=== PATIENT | female | born 1965 | race Caucasian/White ===

== ENCOUNTER 2016-07-03 15:52 | Emergency (ER) | payer MEDICAID, OTHER ==
[~2016-07-03] VITALS: Ht 160 cm; Wt 88.5 kg
[~2016-07-03 15:52] MED LIST: NIAC500T51 PO; PERCOCET OR; ZOFR4TAB3 PO; ZYRT10TA14 PO; flovent INH; vento INH; vitamin D PO
[2016-07-03 15:53] VITALS: BP 128/86
[2016-07-03] MEDS ORDERED: VITA50003 (16:09)
[2016-07-03] MEDS ORDERED: GABA600T (16:09)
[2016-07-03] MEDS ORDERED: ARNU1INH (16:09)
[2016-07-03] MEDS ORDERED: ESTR25TA (16:09)
[2016-07-03] MEDS ORDERED: CELE1CAP9 (16:09)
[2016-07-03] MEDS ORDERED: AMIT10TA (16:09)
[2016-07-03] MEDS ORDERED: CYCL10TA (16:09)
[2016-07-03] MEDS ORDERED: OXYCO5TA PO (16:52)
== END 2016-07-03 17:00 | disposition home or self-care (01) ==
LOC: M ED 16:38
DX: M54.42 Lumbago with sciatica, left side (principal); J45.909 Unspecified asthma, uncomplicated; F17.200 Nicotine dependence, unspecified, uncomplicated; Z88.5 Allergy status to narcotic agent; Z79.899 Other long term (current) drug therapy; Z79.51 Long term (current) use of inhaled steroids

== ENCOUNTER → 2016-08-02 | Outpatient (CLI) | payer OTHER ==
[~2016-08-02] MED LIST changes: +ALBU17IN INH; +AMIT10TA; +ARNU1INH INH; +CELE1CAP9 PO; +CETI10TA PO; +CYCL10TA; +DRIS50002 PO; +ESTR25TA; +ESTR25TA PO; +FLUT22IN INH; +GABA600T PO; +OXYC-517 PO; +OXYCO5TA PO; +VITA50003
== END ==
LOC: M LAB 08:56
PROVIDERS: ATTEND Orthopaedic Surgery
DX: Z01.812 Encounter for preprocedural laboratory examination (principal)

== ENCOUNTER 2016-08-09 05:47 | Inpatient (IN) | payer OTHER ==
--- NOTE | 2016-08-06 13:33 | HPE ---
DATE OF ADMISSION: 08/09/2016 CHIEF COMPLAINT: Back pain, pain down her left leg. HISTORY: This is a pleasant 51-year-old female patient with progressively worsening back pain and pain down her left leg. She has failed to improve with conservative management, to include epidural steroid injections, physical therapy (PT), rest and activity modifications. She continues to have symptoms with normal day to day activities. She had a MRI of her lumbar spine notable for stenosis primarily at 3-4 and 4-5 with degenerative changes above and below those levels. She continues to have symptoms with normal activities. She has elected for surgery for her continued symptoms. She has consented for a left unilateral laminectomy and posterior fusion in situ at L3-L4-L5 with the use of a local bone graft and allograft in the form of ViviGen. ALLERGIES: No known drug allergies. CURRENT MEDICATIONS: - Celebrex 200 mg one tablet once per day. She will discontinue that on Saturday. - Cetirizine 10 mg one tablet once per day - Estradiol 0.5 mg one tablet once per day - Flexeril 10 mg one tablet up to three times a day - gabapentin 600 mg one tablet twice a day - Tylenol as needed for pain - Percocet as needed for pain MEDICAL HISTORY: Includes lumbar spinal stenosis, lumbar spondylolisthesis, lumbar degenerative disc disease, back pain, pain down her left leg, seasonal allergies. SURGICAL HISTORY: Complete hysterectomy, toe to thumb transplant, carpal tunnel release, knee scope on the right side. SOCIAL HISTORY: She does not smoke. She does not use alcohol. FAMILY HISTORY: Noncontributory. REVIEW OF SYSTEMS: Denies fever or chills. Denies chest pain, shortness of breath, or cough. Denies change in her bowel or bladder habits. Denies recent urinary tract infection (UTI) or urinary tract infection (UTI) symptoms. Has persistent pain in her back and pain down her left leg with activities of daily living. Denies nausea or vomiting. PHYSICAL EXAMINATION: Today reveals an alert, well nourished, well developed female patient. She ambulates with a normal gait. Her gait is not wide based. She does not use assistive devices. Straight leg raise testing is irritable on the left. Deep tendon reflexes are trace at the bilateral knees, 1 at both ankles. Clonus is negative. There is decreased light touch from the anterior thigh toward the proximal aspect of the knee on examination on the left side. The right side is intact to light touch. NECK: Supple without adenopathy or jugular venous distention (JVD). LUNGS: Clear to auscultation without rales or wheeze. HEART: Regular rate and rhythm. ABDOMEN: Bowel sounds are present. PHYSICAL EXAMINATION: VITAL SIGNS: Temperature 98.3, blood pressure 120/90, respirations 15, pulse 80 , height 64 inches, weight 196 pounds. IMPRESSION: 1. Symptomatic spinal stenosis of the lumbar spine at L3-4 and L5, as well as spondylolisthesis of the lumbar spine. PLAN: She has consented for a left unilateral laminectomy and posterior fusion in situ at L3-L4-L5 with the use of local bone graft and allograft in the form of ViviGen. JADE
[2016-08-09] VITALS (7 sets, daily range): BP systolic 106–137; BP diastolic 64–82
[~2016-08-09] VITALS: Ht 165.1 cm; Wt 88.5 kg
[2016-08-09] MEDS ORDERED: GABAPENTIN 300 MG CAP PO ONE (06:00)
[2016-08-09] MEDS ORDERED: LR 1,000 ML IV ONE (06:00)
[2016-08-09] MEDS ORDERED: PERCOCET 5MG/325MG TAB PO ONE (06:00)
[2016-08-09] MEDS ORDERED: CelecoXIB (CeleBREX) 100 MG CAP PO ONE (06:00)
[2016-08-09] MEDS ORDERED: dexameTHASONE 4 MG/ML 1ML VIAL (J1100) As Ordered ONE (06:48)
[2016-08-09] MEDS ORDERED: LIDOCAINE PRES-FREE 2% 10ML AMP As Ordered ONE (06:48)
[2016-08-09] MEDS ORDERED: LIDOCAINE 2% JELLY 30 ML As Ordered ONE (06:48)
[2016-08-09] MEDS ORDERED: PHENYLEPHRINE INJ 10MG/ML VIAL (J2370) As Ordered ONE ×2 (06:48→09:22)
[2016-08-09] MEDS ORDERED: PROPOFOL 200 MG/20 ML VIAL As Ordered ONE (06:48)
[2016-08-09] MEDS ORDERED: HYDROmorphone HCL 2 MG/ML 1ML VIAL (J1170) As Ordered ONE (06:48)
[2016-08-09] MEDS ORDERED: ONDANSETRON 4MG/2ML VIAL (J2405) As Ordered ONE (06:48)
[2016-08-09] MEDS ORDERED: fentaNYL 100 MCG/2 ML INJECTION (J3010) As Ordered ONE ×2 (06:48→11:55)
[2016-08-09] MEDS ORDERED: SUCCINYLCHOLINE 100 MG/5 ML SYRINGE (J0330) As Ordered ONE (06:48)
[2016-08-09] MEDS ORDERED: ROCURONIUM BROMIDE 50 MG/5 ML VIAL As Ordered ONE (06:48)
[2016-08-09] MEDS ORDERED: MIDAZOLAM INJ 2 MG/2 ML VIAL (J2250) As Ordered ONE (06:49)
[2016-08-09] MEDS ORDERED: BUPIVACAINE/EPIN 0.25% 30 ML VIAL As Ordered ONE (07:14)
[2016-08-09] MEDS ORDERED: BACITRACIN PWD 50,000 UNITS VIAL As Ordered ONE (07:15)
[2016-08-09] MEDS ORDERED: VANCOMYCIN HCL 500 MG/10 ML VIAL (J3370) As Ordered ONE (07:15)
[2016-08-09] MEDS ORDERED: THROMBIN SOLN 20,000 UNITS KIT As Ordered ONE (07:15)
[2016-08-09] MEDS ORDERED: ceFAZolin 2 GM/D5W 50 ML IV BAG (J0690) As Ordered ONE (08:02)
--- NOTE | 2016-08-09 09:39 | REP ---
LUMBAR SPINE, ONE VIEW: HISTORY: Spinal stenosis. A single portable lateral radiograph is obtained. Two metal probes are present overlying the neural arch at the L4-5 and L5-S1 levels. Signed by Dangelo Madison MD 08/09/2016 02:13 P
[2016-08-09] MEDS: fentaNYL 100 MCG/2 ML INJECTION (J3010) IV PRN ×3 (12:05→12:15)
[2016-08-09] MEDS ORDERED: LR 1,000 ML IV SCH (12:15)
[2016-08-09] MEDS ORDERED: ONDANSETRON 4MG/2ML VIAL (J2405) IV PRN (12:15)
[2016-08-09] MEDS ORDERED: ACETAMINOPHEN TAB 650MG DOSE (2X325MG) PO PRN (12:30)
[2016-08-09] MEDS ORDERED: PERCOCET 5MG/325MG TAB PO PRN (12:30)
[2016-08-09] MEDS ORDERED: PROMETHAZINE INJ 25 MG/ML VIAL (J2550) IV PRN (12:30)
[2016-08-09] MEDS ORDERED: HYDROmorphone HCL 1 MG/ML SYRINGE (J1170) IV PRN ×2 (12:30)
[2016-08-09] MEDS: D5W/LR 1,000 ML IV SCH ×2 (12:30→22:30)
[2016-08-09] MEDS: MORPHINE 2 MG/ML 1ML SYRINGE IV PRN ×2 (12:34→13:03)
[2016-08-09] MEDS: CYCLOBENZAPRINE 10 MG TAB PO PRN (12:44)
[2016-08-09] MEDS ORDERED: SCOPOLAMINE 1.5 MG TRANSDERMAL As Ordered ONE (12:54)
[2016-08-09] MEDS ORDERED: METOCLOPRAMIDE INJ 10MG/2ML VIAL (J2765) As Ordered ONE (12:54)
[2016-08-09] MEDS ORDERED: SCOPOLAMINE 1.5 MG TRANSDERMAL TOP ONE (13:15)
[2016-08-09] MEDS ORDERED: METOCLOPRAMIDE INJ 10MG/2ML VIAL (J2765) IV PRN (13:15)
[2016-08-09] MEDS: GABAPENTIN 300 MG CAP PO SCH ×2 (16:20→21:30)
[2016-08-09] MEDS: ESTRADIOL 1 MG TAB PO SCH (21:28)
[2016-08-09] MEDS: CETIRIZINE (ZyrTEC) 10 MG TAB PO SCH (21:28)
[2016-08-09] MEDS: ASCORBIC ACID 500 MG TAB PO SCH (21:29)
[2016-08-09] MEDS: PERCOCET 5MG/325MG TAB PO PRN (21:29)
[2016-08-09] MEDS: DOCUSATE SODIUM 100 MG CAP PO SCH (21:30)
[2016-08-10 02:00] VITALS: BP 145/61
[2016-08-10] MEDS: PERCOCET 5MG/325MG TAB PO PRN ×4 (03:13→20:28)
[2016-08-10 06:00] VITALS: BP 98/53
[2016-08-10] MEDS: D5W/LR 1,000 ML IV SCH (08:30)
[2016-08-10] MEDS: MOM 30ML SUSPENSION UDC PO SCH (09:32)
[2016-08-10] MEDS: GABAPENTIN 300 MG CAP PO SCH ×3 (09:33→20:28)
[2016-08-10] MEDS: DOCUSATE SODIUM 100 MG CAP PO SCH ×2 (09:33→20:28)
[2016-08-10] MEDS: ASCORBIC ACID 500 MG TAB PO SCH ×2 (09:33→20:28)
[2016-08-10 10:00] VITALS: BP 117/58
[2016-08-10] MEDS: CYCLOBENZAPRINE 10 MG TAB PO PRN (12:27)
[2016-08-10 14:00] VITALS: BP 106/58
--- NOTE | 2016-08-10 14:34 | RO ---
DATE OF PROCEDURE: 08/09/2016 PREOPERATIVE DIAGNOSIS: Lumbar spinal stenosis with facet arthropathy spanning L3-4 through L4-5. POSTOPERATIVE DIAGNOSIS: Lumbar spinal stenosis with facet arthropathy spanning L3-4 through L4-5. PROCEDURE PERFORMED: Left unilateral lumbar laminectomy L3-L5, posterior lumbar intertransverse fusion in situ, L3-4, L4-5. SURGEON: Samir Ely MD BIT SHARPENER OPERATOR: Eric Tejada PA-C ANESTHESIA: General. ESTIMATED BLOOD LOSS: Less than 200 mL, replaced with Crystalloid. COMPLICATIONS: None. SPECIFICS OF THE PROCEDURE: L3 unilateral laminectomy for decompression of the thecal sac and exiting nerve root, L4 left unilateral laminectomy for decompression of the thecal sac and traversing nerve root, L5 left unilateral laminectomy for decompression of the thecal sac and exiting nerve root, L3-4 arthrodesis/posterior fusion in situ, intertransverse type, L4-5 arthrodesis/posterior fusion in situ, harvest and placement of local autograft for spine surgery from laminar fragments and bur millings, use of donor allograft for spine surgery. INDICATIONS: Neurogenic claudication down left lower extremity with limited response with epidural injections, MRI evidence of significant facet hypertrophy and fluid-filled facet at 3-4 and 4-5. Consent reviewed in detail, including tano discussion of pathology involved, procedure proposed, alternatives, including doing nothing, risks including, but not limited to pain, failure, infection, bleeding blood loss, incomplete relief, need for more surgery, instability, infection, blood clots or some other problems. The patient agrees to proceed. DESCRIPTION OF PROCEDURE: The patient was she was positioned in the prone position on the Duke frame, knees slightly bent. Axillary roll was utilized. Time-out was accomplished. Next, I stood on the patient's left side, Mr. Tejada on the right side. Incision was based on bony landmarks with palpation of the iliac crest. Infiltrated with 0.25% Marcaine with epinephrine. Next, I made the incision with a #10 blade knife, developed down through skin and subcuticular tissues to the posterior lumbar fascia. We appreciated the crossing fibers of L5 and continued the dissection superior and inferior to that. Next, posterior lumbar fascia was opened with a #10 blade. The dissection was continued through the fascial and muscular tissues reflecting the paraspinal muscles laterally from the spinous process of L5 down the L5 lamina to the L4-5 interspace. Next, high-speed drill was utilized to drill a divot in the lamina at 5 through the lamina at 4. Melendez-Eduardo probe and curette were placed in the divots and a cross-table lateral x-ray was taken at this point to verify level. Once this was accomplished, dissection was continued superiorly and inferiorly to completely expose the 3-4 and 4-5 levels. Next, once this was accomplished, we opened the posterior lumbar fascia on the contralateral right side and dissected down the spinous processes of 3-4 and 5, exposing the right side. Next, Mr. Tejada utilized the Teresa retractor and I utilized the hot knife to reflect the posterior lumbar musculature from the facet complexes and continued the dissection over the transverse processes of 3-4 and 5. Next, likewise, we switched sides and the similar dissection was accomplished on the patient's left side out to the transverse processes at 3-4 and 5. Next, once this was accomplished, we irrigated. Lap pad was placed in the right, and we placed the shadow line retractor on the patient's left. At this stage, my loupe magnification headlamp were removed. The operating microscope was sterilely draped and brought in for the remainder of the procedure. This facilitated safe use of the high-speed bur and ongoing participation of Mr. Tejada. Next, I utilized Leksell to remove bone from the posterior lamina of 3-4 and 5 and bone graft material was retained. Next, I utilized the high-speed bur to implement a left unilateral laminectomy, beginning at L4, extending superiorly through the bare area of L3 and inferiorly through L5 lamina. A Lukens trap was utilized to collect bur millings. This was used later as autograft. Next, once the bony decompression was accomplished, curettes and Kerrison's were utilized to remove ligamentum flavum. I decompressed the lateral recess, especially at the 3-4 level on the left side, there seemed to be some subarticular stenosis, which was cleared. I also appreciated quite significant facet hypertrophy and what appeared to be facet cysts or ganglion like cysts over the facets, especially at 3-4. This is noted bilaterally. Next, the contralateral side was also explored a curved curette to make sure the decompression on that side was also adequate. Next, Vivigen bone graft was prepared. I also obtained 30 mL of crushed cancellus and we mixed the crushed cancellus with the local autograft bone. Next, Mr. Tejada retracted with Teresa retractors. I decorticated the facet complexes and transverse processes on the patient's right side and applied the Vivigen allograft bone product over the transverse processes at 3-4 and 5, followed by application of the local graft mixed with the 30 mL of crushed cancellus terrazzo polisher helper. The wound had been irrigated with saline solution and after placement of bone graft, I also irrigated with small amount of concentrated bacitracin. Next, bone graft was placed on the left side in a similar fashion, including retraction of the Teresa decortication and placement of the Vivigen allograft followed by application of the autograft-allograft composite. Next, the laminectomy defect was then visualized. There was no appreciation of leak or bleeding or bone graft in the canal. Next, irrigation with concentrated bacitracin was accomplished. All retractors were removed. Posterior lumbar fascia was reapproximated with interrupted stitch. Deep dermis with interrupted stitch and Prineo dressing applied. The patient was then able to be log-rolled to hospital bed, extubated, moved to recovery room in good condition. For further details, please refer to medical record.
[2016-08-10] MEDS: CETIRIZINE (ZyrTEC) 10 MG TAB PO SCH (20:28)
[2016-08-10] MEDS: ESTRADIOL 1 MG TAB PO SCH (20:29)
[2016-08-10 22:00] VITALS: BP 109/59
[2016-08-11] MEDS: PERCOCET 5MG/325MG TAB PO PRN (04:24)
[2016-08-11 06:00] VITALS: BP 108/55
[2016-08-11] MEDS: GABAPENTIN 300 MG CAP PO SCH (08:46)
[2016-08-11] MEDS: DOCUSATE SODIUM 100 MG CAP PO SCH (08:47)
[2016-08-11] MEDS: MOM 30ML SUSPENSION UDC PO SCH (08:47)
[2016-08-11] MEDS: ASCORBIC ACID 500 MG TAB PO SCH (08:47)
--- NOTE | 2016-08-14 21:39 | DSES ---
DATE OF ADMISSION: 08/09/2016 DATE OF DISCHARGE: 08/11/2016 ADMISSION DIAGNOSIS: Back pain with left lower extremity radiculopathy. OTHER DIAGNOSES: Seasonal allergies. DISCHARGE DIAGNOSIS: Back pain with left lower extremity radiculopathy status post left unilateral laminectomy and posterior fusion in situ at L3, L4, and L5. OPERATION PERFORMED: Left unilateral laminectomy and posterior fusion in situ at L3, L4 and L5. HISTORY: This is a 51-year-old female with progressively worsening back pain and left lower extremity pain and weakness. The patient was admitted for elective left unilateral laminectomy and posterior fusion in situ at L3, L4, and L5. HOSPITAL COURSE: The patient was admitted on the day of surgery and underwent left unilateral laminectomy and posterior fusion in situ at L3, L4, and L5 which was uneventful. She did well in the postoperative period and her hospital course was without complications. The patient was up with physical therapy per the protocol and her pain was controlled. On the day of discharge the patient was doing well. She is going to use oral medications for pain control. Also she will follow in the office in 2 weeks for wound check and suture removal. She will resume her preoperative medications and diet and she was given instructions for wound monitoring and activity limitations. Please refer to the medical record for further detail.
== END 2016-08-11 11:50 | disposition home or self-care (01) | DRG 304 ==
LOC: M OR 05:47 → M MS5PR 13:40
PROVIDERS: ADMIT Orthopaedic Surgery; ATTEND Orthopaedic Surgery
PROC: 01NB0ZZ Release Lumbar Nerve, Open Approach (ICD-10-PCS; 2016-08-09)
PROC: 00NY0ZZ Release Lumbar Spinal Cord, Open Approach (ICD-10-PCS; 2016-08-09)
PROC: 0SG0071 Fusion of Lumbar Vertebral Joint with Autologous Tissue Substitute, Posterior Approach, Posterior Column, Open Approach (ICD-10-PCS; principal; 2016-08-09 07:30)
DX: M48.06 Spinal stenosis, lumbar region (principal); M43.16 Spondylolisthesis, lumbar region; J30.2 Other seasonal allergic rhinitis; Z79.899 Other long term (current) drug therapy

== ENCOUNTER → 2016-11-09 | Outpatient (REF) | payer OTHER, MEDICAID ==
[~2016-11-09] MED LIST changes: +VITA1CAP40; -VITA50003
[2016-11-09 12:36] LABS: ALBUMIN/GLOBULIN RATIO 1.21 (1.00-1.93); ALKALINE PHOSPHATASE 83 U/L (45-117); ALT/SGPT 27 U/L (12-78); ANION GAP 9 MEQ/L (8-16); AST/SGOT 16 U/L (15-37); BILIRUBIN,TOTAL 0.3 MG/DL (0.2-1.0); BLOOD UREA NITROGEN 12 MG/DL (7-18); CALCIUM LEVEL 9.3 MG/DL (8.5-10.1); CARBON DIOXIDE LEVEL 28 MEQ/L (21-32); CHLORIDE LEVEL 107 MEQ/L (98-107); CHOLESTEROL LEVEL 291 MG/DL (<200); CREATININE FOR GFR 0.87 MG/DL (0.55-1.02); GLOMERULAR FILTRATION RATE > 60.0 (>51); GLUCOSE, FASTING 90 MG/DL (70-105); POTASSIUM SERUM 4.3 MEQ/L (3.5-5.1); SODIUM LEVEL 144 MEQ/L (136-145); TOTAL PROTEIN 7.3 GM/DL (6.4-8.2); TRIGLYCERIDES LEVEL 322 MG/DL (<150)
== END ==
LOC: M SFHCLERA 07:48
PROVIDERS: ATTEND Physician Assistant
DX: E55.9 Vitamin D deficiency, unspecified (principal); E78.2 Mixed hyperlipidemia

== ENCOUNTER → 2016-11-20 | Outpatient (CLI) | payer OTHER ==
--- NOTE | 2016-11-20 16:44 | REPMRS ---
Patient History The patient states she has not had a clinical breast exam in over a year. Patient is postmenopausal. No known family history of cancer. Digital Mammo Screening Bilat: November 20, 2016 - Exam #: [id number] Bilateral CC and MLO view(s) were taken. Technologist: Chani Griggs, Technologist Prior study comparison: November 12, 2012, digital woman screen mammo, performed at [facility] to [facility]. December 13, 2010, bilateral bilat screen digital mammo, performed at [facility] to [facility]. FINDINGS: There are scattered fibroglandular densities. There has been no change in the appearance of the mammogram from the prior studies. There is a mild amount of residual fibroglandular tissue which is fairly symmetric. There is no interval development of dominant mass, architectural distortion, or clustered microcalcification suggestive of malignancy. ASSESSMENT: BI-RADS/ACR category 1 mammogram. Negative. Recommendation Routine screening mammogram in 1 year (for women over age 40). This mammogram was interpreted with the aid of an FDA-approved computer-aided dectection system. Electronically Signed By: Abdi Wetzel MD 11/20/16 [id number]
== END ==
LOC: M RAD 15:03
PROVIDERS: ATTEND Physician Assistant
DX: Z12.31 Encounter for screening mammogram for malignant neoplasm of breast (principal)

== ENCOUNTER → 2016-12-18 | Outpatient (REF) | payer OTHER | LOC: M LAB REF 17:23 | PROVIDERS: ATTEND Specialist | DX: R31.9 Hematuria, unspecified (principal); R30.0 Dysuria ==

== ENCOUNTER → 2017-12-10 | Outpatient (REF) | payer OTHER, MEDICAID ==
[2017-12-10 17:50] LABS: HEMATOCRIT 46.7 % (36.0-47.0); HEMOGLOBIN 15.8 g/dl (12.0-15.5); MEAN CORPUSCULAR HEMOGLOBIN 33.1 pg (27.0-33.0); MEAN CORPUSCULAR HGB CONC 33.8 g/dl (32.0-36.5); MEAN CORPUSCULAR VOLUME 97.9 fl (80.0-96.0); PLATELET COUNT, AUTOMATED 372 10^3/uL (150-450); RED BLOOD COUNT 4.77 10^6/uL (4.00-5.40); RED CELL DISTRIBUTION WIDTH 13.2 % (11.5-14.5); WHITE BLOOD COUNT 6.3 10^3/uL (4.0-10.0)
[2017-12-10 18:05] LABS: ALBUMIN 4.4 GM/DL (3.2-5.2); ALBUMIN/GLOBULIN RATIO 1.29 (1.00-1.93); ALKALINE PHOSPHATASE 84 U/L (45-117); ALT/SGPT 20 U/L (12-78); ANION GAP 7 MEQ/L (8-16); AST/SGOT 18 U/L (7-37); BILIRUBIN,TOTAL 0.4 MG/DL (0.2-1.0); BLOOD UREA NITROGEN 12 MG/DL (7-18); CALCIUM LEVEL 9.6 MG/DL (8.5-10.1); CARBON DIOXIDE LEVEL 28 MEQ/L (21-32); CHLORIDE LEVEL 107 MEQ/L (98-107); CHOLESTEROL LEVEL 286 MG/DL (<200); CHOLESTEROL RISK RATIO 5.607 (<5); CREATININE FOR GFR 0.85 MG/DL (0.55-1.30); GLOMERULAR FILTRATION RATE > 60.0 (>51); GLUCOSE, FASTING 93 MG/DL (70-100); HDL CHOLESTEROL 51 MG/DL (>40); LDL CHOLESTEROL 184 MG/DL (<100); NON-HDL-C 235 MG/DL; POTASSIUM SERUM 4.7 MEQ/L (3.5-5.1); SODIUM LEVEL 142 MEQ/L (136-145); TOTAL PROTEIN 7.8 GM/DL (6.4-8.2); TRIGLYCERIDES LEVEL 255 MG/DL (<150)
[2017-12-10 18:10] LABS: TOTAL 25(OH) VITAMIN D 53.5 NG/ML (30.0-100.0)
[2017-12-10 19:04] LABS: ESTIMATED AVERAGE GLUCOSE 111 MG/DL (60-110); HEMOGLOBIN A1c 5.5 %
== END ==
LOC: M SFHCLERA 10:27
DX: E66.09 Other obesity due to excess calories (principal)
CPT/HCPCS: 80053

== ENCOUNTER → 2017-12-13 | Outpatient (CLI) | payer OTHER | LOC: M RAD 10:33 | DX: Z12.31 Encounter for screening mammogram for malignant neoplasm of breast (principal); R33.9 Retention of urine, unspecified; R93.49 Abnormal radiologic findings on diagnostic imaging of other urinary organs | CPT/HCPCS: 76857 ==

== ENCOUNTER → 2017-12-20 | Outpatient (REF) | payer OTHER, MEDICAID ==
[2017-12-20 18:07] LABS: APPEARANCE, URINE CLEAR (CLEAR); BACTERIA, URINE AUTO 1+ (NEGATIVE); BILIRUBIN, URINE AUTO NEGATIVE (NEGATIVE); BLOOD, URINE BLOOD 1+ (NEGATIVE); COLOR, URINE STRAW (YELLOW); GLUCOSE, URINE (UA) AUTO NEGATIVE (NEGATIVE); KETONE, URINE AUTO NEGATIVE (NEGATIVE); LEUKOCYTE ESTERASE, URINE AUTO NEGATIVE (NEGATIVE); MUCUS, URINE SMALL (NEGATIVE); NITRITE, URINE AUTO NEGATIVE (NEGATIVE); PROTEIN, URINE AUTO NEGATIVE (NEGATIVE); RBC, URINE AUTO 1 /HPF (0-3); SPECIFIC GRAVITY URINE AUTO 1.005 (1.002-1.035); SQUAMOUS EPITHELIAL CELL UR AU 1 /HPF (0-6); UROBILINOGEN, URINE AUTO 0.2 mg/dL (0.0-2.0); WBC, URINE AUTO 1 /HPF (0-3)
== END ==
LOC: M SMT 17:01
DX: R33.9 Retention of urine, unspecified (principal)
CPT/HCPCS: 81001

== ENCOUNTER → 2018-01-21 | Outpatient (CLI) | payer OTHER ==
[~2018-01-21] MED LIST changes: -ALBU17IN INH; -AMIT10TA; -ARNU1INH INH; -CELE1CAP9 PO; -CETI10TA PO; -CYCL10TA; -DRIS50002 PO; -ESTR25TA; -ESTR25TA PO; -FLUT22IN INH; -GABA600T PO; +LIDOCAINE 2% INJ 100 MG/5 ML SDV (FOR ANES.) As Ordered; -NIAC500T51 PO; -OXYC-517 PO; -OXYCO5TA PO; -PERCOCET OR; +PROPOFOL 500 MG/50 ML VIAL As Ordered; -VITA1CAP40; -ZOFR4TAB3 PO; -ZYRT10TA14 PO; -flovent INH; -vento INH; -vitamin D PO
== END ==
LOC: M RAD 09:05
DX: R33.9 Retention of urine, unspecified (principal)
CPT/HCPCS: 76775

== ENCOUNTER 2018-01-24 06:25 | Day surgery (SDC) | payer OTHER ==
[2018-01-24] MEDS ORDERED: LIDOCAINE 2% INJ 100 MG/5 ML SDV (FOR ANES.) As Ordered (07:06)
[2018-01-24] MEDS ORDERED: PROPOFOL 200 MG/20 ML VIAL As Ordered ×3 (07:07→08:45)
[2018-01-24] MEDS: NS 1,000 ML IV (07:22)
== END 2018-01-24 09:21 | disposition home or self-care (01) ==
LOC: M OPP 06:25
DX: Z12.11 Encounter for screening for malignant neoplasm of colon (principal); D12.3 Benign neoplasm of transverse colon; D12.4 Benign neoplasm of descending colon; K63.5 Polyp of colon; K57.30 Diverticulosis of large intestine without perforation or abscess without bleeding; R12 Heartburn; J44.9 Chronic obstructive pulmonary disease, unspecified; M19.90 Unspecified osteoarthritis, unspecified site; R06.83 Snoring; Z79.899 Other long term (current) drug therapy; Z87.891 Personal history of nicotine dependence; Z80.3 Family history of malignant neoplasm of breast
CPT/HCPCS: 45385

== ENCOUNTER → 2018-05-07 | Outpatient (REF) | payer OTHER, MEDICAID ==
[~2018-05-07] MED LIST changes: +ALBU17IN INH; +AMIT10TA; +ARNU1INH INH; +ARNU1INH PO; +CELE1CAP9 PO; +CETI10TA PO; +CYCL10TA; +DRIS50003 PO; +ESTR0.5T3 PO; +ESTR25TA; +ESTR25TA PO; +FLUT22IN INH; +GABA600T4 PO; -LIDOCAINE 2% INJ 100 MG/5 ML SDV (FOR ANES.) As Ordered; +MOBI4TAB PO; +NIAC500T51 PO; +OXYC-517 PO; +OXYCO5TA PO; +PERCOCET OR; +PROAAER10 INH; -PROPOFOL 500 MG/50 ML VIAL As Ordered; +TIZA2CAP PO; +VITA50005 PO; +ZOFR4TAB3 PO; +ZYRT10TA14 PO; +flovent INH; +vento INH; +vitamin D PO
== END ==
LOC: M SFHCLERA 12:39
PROVIDERS: ATTEND Family Medicine
DX: K58.9 Irritable bowel syndrome, unspecified (principal)

== ENCOUNTER → 2018-08-06 | Outpatient (REF) | payer OTHER, MEDICAID ==
[~2018-08-06] MED LIST changes: +ONDA-228 PO; +OXYC1TAB23 OR; -PERCOCET OR; -ZOFR4TAB3 PO
== END ==
LOC: M SFHCCLAY 16:09
PROVIDERS: ATTEND Family Medicine
DX: R10.13 Epigastric pain (principal)

== ENCOUNTER → 2018-10-16 | Outpatient (REF) | payer OTHER, MEDICAID ==
[2018-10-16 12:12] LABS: C REACTIVE PROTEIN QUANTITATIV 0.83 MG/DL (0.00-0.30); RHEUMATOID FACTOR QUANT < 10.0 IU/ML (<15.0); URIC ACID 5.5 MG/DL (2.6-6.0)
[2018-10-21 00:10] LABS: ANA (HEP2) Negative (.); CYCLIC CITRULLINATED PEPTIDE 4 units (0-19)
== END ==
LOC: M SFHCLERA 08:54
PROVIDERS: ATTEND Family Medicine
DX: M25.50 Pain in unspecified joint (principal)

== ENCOUNTER → 2018-10-16 | Outpatient (CLI) | payer OTHER, MEDICAID ==
--- NOTE | 2018-10-16 11:05 | REP ---
REASON: Arthritis. Only two views were obtained. No abnormality is noted. Two views of the left wrist were obtained showing postoperative changes involving the hand. There is no acute abnormality. Electronically Signed by Jl Steel DO 10/16/2018 12:17 P
--- NOTE | 2018-10-16 11:05 | REP ---
REASON: Polyarthralgia. Standing bilateral AP view of the knees shows bilateral bicompartmental marginal osteophytosis with bilateral medial compartmental narrowing, right greater than left. IMPRESSION: Chronic changes. Electronically Signed by Jl Steel DO 10/16/2018 12:18 P
--- NOTE | 2018-10-16 11:10 | REP ---
REASON: Pain. PRIORS: None. LEFT HAND: Chronic changes seen involving the hand. Only the first and fourth digits remain intact. Degenerative changes seen involving those digits. Postoperative changes seen involving the first digit. There is no evidence of an acute abnormality. RIGHT HAND: FINDINGS: The joint spaces are symmetric and relatively well maintained. There is no evidence of acute fracture or destructive osseous lesion. IMPRESSION: Negative hand. Electronically Signed by Jl Steel DO 10/16/2018 12:18 P
== END ==
LOC: M LRY 09:02
PROVIDERS: ATTEND Family Medicine
DX: M25.762 Osteophyte, left knee (principal); M25.761 Osteophyte, right knee; M17.0 Bilateral primary osteoarthritis of knee

== ENCOUNTER → 2019-03-24 | Outpatient (REF) | payer OTHER ==
[2019-03-24 13:25] LABS: BLOOD UREA NITROGEN 12 MG/DL (7-18); CALCIUM LEVEL 9.4 MG/DL (8.5-10.1); CARBON DIOXIDE LEVEL 26 MEQ/L (21-32); CHLORIDE LEVEL 107 MEQ/L (98-107); CHOLESTEROL LEVEL 253 MG/DL (<200); CHOLESTEROL RISK RATIO 4.865 (<5); CREATININE FOR GFR 0.89 MG/DL (0.55-1.30); GLOMERULAR FILTRATION RATE > 60.0 (>51); GLUCOSE, FASTING 91 MG/DL (70-100); HDL CHOLESTEROL 52 MG/DL (>40); LDL CHOLESTEROL 163 MG/DL (<100); NON-HDL-C 201 MG/DL; POTASSIUM SERUM 3.9 MEQ/L (3.5-5.1); SODIUM LEVEL 141 MEQ/L (136-145); TRIGLYCERIDES LEVEL 191 MG/DL (<150)
== END ==
LOC: M SFHCLERA 08:38
PROVIDERS: ATTEND Family Medicine
DX: E66.09 Other obesity due to excess calories (principal)

== ENCOUNTER → 2021-02-10 | Outpatient (CLI) | payer OTHER ==
[~2021-02-10] MED LIST changes: -AMIT10TA; +AMIT10TA7; +CYCL-707; -CYCL10TA; +DULO1CAP5 PO; +DULO1CAP6 PO; +E-Z-GAS II EFFERVESCENT PACKET (SODIUM BICARB./CITRIC ACID/SIMETHICONE) As Ordered ONE; +E-Z-HD 98% w/w 340GM SUSP BTL As Ordered ONE; +E-Z-PAQUE 96% w/w SUSP 176GM BTL As Ordered ONE; +VITMTA PO
== END ==
LOC: M RAD 08:08
PROVIDERS: ATTEND Physician Assistant Medical
DX: R13.10 Dysphagia, unspecified (principal)

== ENCOUNTER → 2021-03-20 | Outpatient (CLI) | payer OTHER ==
[~2021-03-20] MED LIST changes: -E-Z-GAS II EFFERVESCENT PACKET (SODIUM BICARB./CITRIC ACID/SIMETHICONE) As Ordered ONE; -E-Z-HD 98% w/w 340GM SUSP BTL As Ordered ONE; -E-Z-PAQUE 96% w/w SUSP 176GM BTL As Ordered ONE
== END ==
LOC: M LABSMTC 11:15
PROVIDERS: ATTEND Anesthesiology
DX: Z01.812 Encounter for preprocedural laboratory examination (principal); Z20.822 Contact with and (suspected) exposure to COVID-19

== ENCOUNTER 2021-03-24 09:13 | Day surgery (SDC) | payer OTHER ==
[~2021-03-24] VITALS: Ht 165.1 cm; Wt 825.0 kg
[~2021-03-24 09:13] MED LIST changes: +NS 1,000 ML IV ONE
[2021-03-24] MEDS ORDERED: LIDOCAINE 2% 100MG/5ML SDV (FOR ANES.) As Ordered ONE (10:57)
[2021-03-24] MEDS ORDERED: propofoL 200 MG/20 ML VIAL As Ordered ONE ×4 (10:57→11:25)
[2021-03-24] MEDS ORDERED: GLYCOPYRROLATE INJ 0.2 MG/ML 2 ML VIAL As Ordered ONE (10:58)
[2021-03-24 11:55] VITALS: BP 124/73
== END 2021-03-24 12:08 | disposition home or self-care (01) ==
LOC: M OPP 09:13
PROVIDERS: ATTEND Internal Medicine Gastroenterology
DX: Z12.11 Encounter for screening for malignant neoplasm of colon (principal); Z86.010 Personal history of colon polyps; K63.5 Polyp of colon; K57.30 Diverticulosis of large intestine without perforation or abscess without bleeding; K64.8 Other hemorrhoids; K21.00 Gastro-esophageal reflux disease with esophagitis, without bleeding; K29.70 Gastritis, unspecified, without bleeding; R13.10 Dysphagia, unspecified; R12 Heartburn; Z79.899 Other long term (current) drug therapy; Z87.891 Personal history of nicotine dependence; Z80.3 Family history of malignant neoplasm of breast

== ENCOUNTER → 2021-04-28 | Outpatient (CLI) | payer OTHER ==
[~2021-04-28] MED LIST changes: -NS 1,000 ML IV ONE
[2021-04-28 12:43] LABS: BASO % 0.4 % (0.0-1.0); EOS # 0.1 10^3/uL (0.0-0.5); HEMATOCRIT 38.4 % (36.0-47.0); HEMOGLOBIN 13.4 g/dl (12.0-15.5); LYMPH # 2.9 10^3/uL (1.5-5.0); LYMPH % 36.8 % (24.0-44.0); MEAN CORPUSCULAR HEMOGLOBIN 32.2 pg (27.0-33.0); MEAN CORPUSCULAR HGB CONC 34.9 g/dl (32.0-36.5); MEAN CORPUSCULAR VOLUME 92.3 fl (80.0-96.0); MONO # 0.7 10^3/uL (0.0-0.8); MONO % 8.5 % (2.0-8.0); NEUTROPHILS # 4.1 10^3/uL (1.5-8.5); PLATELET COUNT, AUTOMATED 473 10^3/uL (150-450); RED BLOOD COUNT 4.16 10^6/uL (4.00-5.40); WHITE BLOOD COUNT 7.8 10^3/uL (4.0-10.0)
[2021-04-28 13:13] LABS: ALBUMIN 3.8 GM/DL (3.2-5.2); ALT/SGPT 27 U/L (12-78); BILIRUBIN,TOTAL 0.5 MG/DL (0.2-1.0); BLOOD UREA NITROGEN 10 MG/DL (7-18); CALCIUM LEVEL 9.3 MG/DL (8.5-10.1); CARBON DIOXIDE LEVEL 28 MEQ/L (21-32); CHLORIDE LEVEL 110 MEQ/L (98-107); CHOLESTEROL LEVEL 205 MG/DL (<200); CREATININE FOR GFR 0.66 MG/DL (0.55-1.30); FERRITIN 153 NG/ML (8-252); GLOMERULAR FILTRATION RATE > 60.0 (>51); GLUCOSE, FASTING 83 MG/DL (70-100); HDL CHOLESTEROL 42 MG/DL (>40); IRON (FE) 103 UG/DL (50-170); LDL CHOLESTEROL 126 MG/DL (<100); NON-HDL-C 163 MG/DL; PERCENT SATURATION 34.3 % (13.2-45.0); POTASSIUM SERUM 3.7 MEQ/L (3.5-5.1); SODIUM LEVEL 143 MEQ/L (136-145); TOTAL IRON BINDING CAPACITY 300 UG/DL (250-450); TRIGLYCERIDES LEVEL 186 MG/DL (<150)
[2021-04-28 13:17] LABS: TOTAL 25(OH) VITAMIN D 25.4 NG/ML (30.0-100.0); VITAMIN B12 LEVEL 245 PG/ML (247-911)
[2021-04-28 13:18] LABS: ERYTHROCYTE SEDIMENTATION RATE 26 mm/hr (0-30)
== END ==
LOC: M LAB 11:12
PROVIDERS: ATTEND Family Medicine
DX: K52.9 Noninfective gastroenteritis and colitis, unspecified (principal); E78.2 Mixed hyperlipidemia

== ENCOUNTER → 2021-05-30 | Outpatient (CLI) | payer OTHER | LOC: M RAD 07:50 | PROVIDERS: ATTEND Family Medicine | DX: Z12.2 Encounter for screening for malignant neoplasm of respiratory organs (principal) ==

== ENCOUNTER → 2021-10-13 | Outpatient (CLI) | payer OTHER | LOC: M WHC 12:42 | PROVIDERS: ATTEND Family Medicine | DX: Z12.31 Encounter for screening mammogram for malignant neoplasm of breast (principal) ==

== ENCOUNTER → 2022-07-17 | Outpatient (CLI) | payer OTHER | LOC: M RAD 09:06 | PROVIDERS: ATTEND Registered Nurse Community Health | DX: Z87.891 Personal history of nicotine dependence (principal) ==

== ENCOUNTER → 2022-11-06 | Outpatient (CLI) | payer OTHER ==
[~2022-11-06] MED LIST changes: +CELE0.09 PO; -CELE1CAP9 PO
== END ==
LOC: M WHC 11:43
PROVIDERS: ATTEND Physician Assistant
DX: Z47.1 Aftercare following joint replacement surgery (principal)